=== PATIENT | male | born 1965 | race Caucasian/White ===

== ENCOUNTER 2025-07-18 19:04 | Emergency (ER) | payer OTHER ==
[~2025-07-18] VITALS: Ht 175.3 cm; Wt 84.0 kg
[2025-07-18] MEDS ORDERED: DEXAMETHASONE SOD PHOS 10 MG/ML VIAL IV ONE (19:15)
[2025-07-18] MEDS ORDERED: FAMOTIDINE 20 MG/ 2 ML VIAL IV ONE (19:15)
[2025-07-18] MEDS ORDERED: NALOXONE HCL 2 MG/2 ML SYR IV ONE (19:15)
[2025-07-18] MEDS ORDERED: EPIPEN AUTO INJECTOR 0.3 MG/0.3 ML ML IM ONE ×2 (19:15→21:45)
[2025-07-18] MEDS ORDERED: [UNRECOGNIZED DRUG - OTHER] IM ONE (19:15)
[2025-07-18] MEDS ORDERED: EPIPEN 2-P0.3 MG/0.3 IM (21:35)
[2025-07-18 21:47] VITALS: BP 113/66
== END 2025-07-18 21:51 | disposition home or self-care (01) ==
LOC: ED 19:04
DX: T63.441A Toxic effect of venom of bees, accidental (unintentional), initial encounter (principal); T78.2XXA Anaphylactic shock, unspecified, initial encounter
CPT/HCPCS: 71045; 96372; 96374; 96375; 99283-25; J0169; J1100; J1200; J2312